=== PATIENT | male | born 1990 | race Two or more races ===

== ENCOUNTER 2019-10-26 17:57 | Emergency (ER) | payer SELFPAY ==
[~2019-10-26] VITALS: Ht 177.8 cm; Wt 75.0 kg
[2019-10-26 18:00] VITALS: BP 133/87
[2019-10-26] MEDS ORDERED: ASPIRIN 325 MG TABLET PO ONE (18:30)
--- NOTE | 2019-10-26 18:32 | PHYS DOC ---
General Adult EDM: Chief Complaint: CHEST PAIN HPI: HPI: Patient is a 29 year old male with no significant medical history who presents to the ED today complaining of 6 out of 10 left-sided upper back pain radiating to the left chest area that began last night. Patient reports pain is worse on certain movements. He states he occasionally gets short of air. Denies any fever coughing or congestion. Denies anything specifically alleviating the pain. Conventions Assistant line was used for Arabic Review of Systems: Review of Systems: Constitutional: Denies fever or chills. [] Eyes: Denies change in visual acuity. [] HENT: Denies nasal congestion or sore throat. [] Respiratory: Denies cough or shortness of breath. [] Cardiovascular: Reports left-sided upper back pain radiating to the chest GI: Denies abdominal pain, nausea, vomiting, bloody stools or diarrhea. [] : Denies dysuria. [] Musculoskeletal: Denies back pain or joint pain. [] Integument: Denies rash. [] Neurologic: Denies headache, focal weakness or sensory changes. [] Endocrine: Denies polyuria or polydipsia. [] Lymphatic: Denies swollen glands. [] Psychiatric: Denies depression or anxiety. [] Heart Score: HEART Score for Chest Pain: HEART Score for Chest Pain Response (Comments) Value History Slighlty/Non-Suspicious 0 ECG Normal 0 Age < 45 0 Risk Factors No Risk Factors 0 Troponin < Normal Limit 0 Total 0 Risk Factors: Risk Factors: DM, Current or recent (<one month) smoker, HTN, HLP, family history of CAD, obesity. Risk Scores: Score 0 - 3: 2.5% MACE over next 6 weeks - Discharge Home Score 4 - 6: 20.3% MACE over next 6 weeks - Admit for Clinical Observation Score 7 - 10: 72.7% MACE over next 6 weeks - Early Invasive Strategies Current Medications: Current Medications Medications (Trade) Dose Ordered Sig/[facility] Start Time Stop Time Status Last Admin Dose Admin Aspirin (Ayush Aspirin) 325 mg 1X ONCE 10/26/19 18:30 10/26/19 18:31 Allergies: Allergies: Allergies Coded Allergies Type Severity Reaction Last Updated Verified No Known Drug Allergies 10/26/19 No Physical Exam: PE: Constitutional: Well developed, well nourished, no acute distress, non-toxic appearance. [] HENT: Normocephalic, atraumatic, bilateral external ears normal, oropharynx moist, no oral exudates, nose normal. [] Eyes: PERRLA, EOMI, conjunctiva normal, no discharge. [] Neck: Normal range of motion, no tenderness, supple, no stridor. [] Cardiovascular:Heart rate regular rhythm, no murmur [] Lungs & Thorax: Bilateral breath sounds clear to auscultation [] Abdomen: Bowel sounds normal, soft, no tenderness, no masses, no pulsatile masses. [] Skin: Warm, dry, no erythema, no rash. [] Back: No tenderness, no CVA tenderness. [] Extremities: No tenderness, no cyanosis, no clubbing, ROM intact, no edema. [] Neurologic: Alert and oriented X 3, normal motor function, normal sensory function, no focal deficits noted. [] Psychologic: Affect normal, judgement normal, mood normal. [] EKG: EKG: [] Radiology/Procedures: Radiology/Procedures: []PROCEDURE: PORTABLE CHEST 1V PORTABLE CHEST 1V 10/26/2019 6:20 PM INDICATION: Chest COMPARISON: None available TECHNIQUE: Portable frontal view of the chest is provided. FINDINGS: The cardiomediastinal silhouette is within normal limits. Lungs are clear. There are no significant pleural effusions. There is no pulmonary vascular congestion. No pneumothorax. No suspicious osseous abnormality. IMPRESSION: There is no acute cardiopulmonary process. Electronically signed by: Valerie Caban MD (10/26/2019 6:39 PM) [facility] DICTATED and SIGNED BY: VALERIE CABAN MD DATE: 10/26/191838 Course & Med Decision Making: Course & Med Decision Making Pertinent Labs and Imaging studies reviewed. (See chart for details) This is a 29-year-old male patient presenting to the ED today complaining of left-sided upper back pain radiating to the left chest, symptoms began yesterday. Heart score 0 Cardiac work-up is negative. Patient was discharged home. Follow-up with wholesale account executive in 1 to 2 weeks. Dragon Disclaimer: Dragon Disclaimer: This electronic medical record was generated, in whole or in part, using a voice recognition dictation system. Departure Departure Impression: Primary Impression: Chest pain Qualified Codes: R07.9 - Chest pain, unspecified Disposition: 01 HOME, SELF-CARE Condition: STABLE Referrals: NO PCP (PCP) ANNMARIE MALDONADO MD follow up in 1 week Patient Instructions: Chest Pain (Nonspecific), [id number] Additional Instructions: You were evaluated in the emergency room for chest pain, your cardiac work-up is negative. Please follow-up with your primary care doctor or the provided wholesale account executive in 1 week. You can take Tylenol or Motrin for pain. SORAYA REYEZ PAPERHANGER ASSISTANT Oct 26, 2019 18:32
[2019-10-26 18:42] LABS: BASO % 1 % (0-3); EOS % 1 % (0-3); HEMATOCRIT 40.6 % (39.0-53.0); HEMOGLOBIN 14.2 g/dL (13.0-17.5); LYMPH # 2.1 x10^3/uL (1.0-4.8); LYMPH % 31 % (24-48); MEAN CORPUSCULAR HEMOGLOBIN 31 pg (25-35); MEAN CORPUSCULAR HGB CONC 35 g/dL (31-37); MEAN CORPUSCULAR VOLUME 89 fL (79-100); MONO # 0.5 x10^3/uL (0.0-1.1); MONO % 8 % (0-9); NEUT # 4.1 x10^3/uL (1.8-7.7); NEUT % 60 % (31-73); PLATELET COUNT 199 x10^3/uL (140-400); RED BLOOD COUNT 4.56 x10^6/uL (4.30-5.70); RED CELL DISTRIBUTION WIDTH 12.9 % (11.5-14.5); WHITE BLOOD COUNT 6.7 x10^3/uL (4.0-11.0)
--- NOTE | 2019-10-26 18:42 | RAD ---
PORTABLE CHEST 1V 10/26/2019 6:20 PM INDICATION: Chest COMPARISON: None available TECHNIQUE: Portable frontal view of the chest is provided. FINDINGS: The cardiomediastinal silhouette is within normal limits. Lungs are clear. There are no significant pleural effusions. There is no pulmonary vascular congestion. No pneumothorax. No suspicious osseous abnormality. IMPRESSION: There is no acute cardiopulmonary process. Electronically signed by: Sarah Caban MD (10/26/2019 6:39 PM) [facility]
[2019-10-26 18:53] LABS: CALCIUM 9.1 mg/dL (8.5-10.1); GFR 87.7; POTASSIUM 3.7 mmol/L (3.5-5.1)
[2019-10-26 18:56] LABS: PROTHROMBIN TIME PATIENT 12.7 SEC (11.7-14.0)
[2019-10-26 18:59] LABS: D-DIMER 0.28 ug/mlFEU (0.00-0.50)
[2019-10-26 19:00] LABS: ALBUMIN 4.5 g/dL (3.4-5.0); ALBUMIN/GLOBULIN RATIO 1.3 (1.0-1.7); MAGNESIUM 2.1 mg/dL (1.8-2.4); TOTAL BILIRUBIN 0.4 mg/dL (0.2-1.0)
--- NOTE | 2019-10-27 06:33 | EKG ---
[facility] [address] [place] [address] Test Date: 2019-10-26 Test Time: 18:05:43 Pat Name: SKYLAR LEE Department: Room: Gender: Power Line Installer And Repairer: : 1990 Requested By: SORAYA REYEZ Order Number: [id number] Reading MD: Austin Pantoja Measurements Intervals [place] Rate: 66 P: 0 GA: 144 QRS: 28 QRSD: 88 T: 21 QT: 372 QTc: 395 Interpretive Statements SINUS RHYTHM NON SPECIFIC ST-T ABNORMALITY (ELEVATION) Electronically Signed On 10-27-2019 8:45:39 CDT by Austin Pantoja
== END 2019-10-26 19:49 | disposition home or self-care (01) ==
LOC: ER 17:57
DX: R07.89 Other chest pain (principal); M54.6 Pain in thoracic spine
CPT/HCPCS: 36415; 71045; 80053; 82553; 83735; 83880; 84443; 84484; 85025; 85379; 85610; 93005; 99285